=== PATIENT | female | born 1985 | race Caucasian/White ===

== ENCOUNTER 2024-04-01 06:28 | Day surgery (SDC) | payer OTHER, SELFPAY ==
[2024-04-01] VITALS (10 sets, daily range): BP systolic 104–118; BP diastolic 69–74; BMI 28.1
[2024-04-01 12:11] LABS: HCG, Urine Qualitative Screen Negative
[2024-04-01 12:29] LABS: Hemoglobin 13.9 g/dL (12.0-16.0)
== END 2024-04-01 17:59 | disposition home or self-care (01) ==
LOC: SDS 06:28
PROVIDERS: ATTENDING PHYSICIAN Otolaryngology
DX: D10.1 Benign neoplasm of tongue (principal)
CPT/HCPCS: 41112; 88307; 88332; 81025; 85018; 87070; 88331; 88341; 88342

== ENCOUNTER → 2024-10-08 09:17 | Outpatient (REF) | payer OTHER, SELFPAY | LOC: PNTC 09:17 | PROVIDERS: ATTENDING PHYSICIAN Obstetrics & Gynecology | DX: O09.529 Supervision of elderly multigravida, unspecified trimester (principal) | CPT/HCPCS: 76811 ==

== ENCOUNTER → 2024-11-12 10:58 | Outpatient (REF) | payer OTHER, SELFPAY | LOC: PNTC 10:58 | PROVIDERS: ATTENDING PHYSICIAN Obstetrics & Gynecology | DX: O09.529 Supervision of elderly multigravida, unspecified trimester (principal) | CPT/HCPCS: 76816 ==

== ENCOUNTER → 2025-01-07 10:27 | Outpatient (REF) | payer OTHER, SELFPAY | LOC: PNTC 10:27 | PROVIDERS: ATTENDING PHYSICIAN Obstetrics & Gynecology | DX: O09.529 Supervision of elderly multigravida, unspecified trimester (principal) | CPT/HCPCS: 59025; 76816 ==

== ENCOUNTER → 2025-01-14 10:33 | Outpatient (REF) | payer OTHER, SELFPAY | LOC: PNTC 10:33 | PROVIDERS: ATTENDING PHYSICIAN Obstetrics & Gynecology | DX: O09.529 Supervision of elderly multigravida, unspecified trimester (principal) | CPT/HCPCS: 59025; 76815 ==

== ENCOUNTER → 2025-01-21 11:04 | Outpatient (REF) | payer OTHER, SELFPAY | LOC: PNTC 11:04 | PROVIDERS: ATTENDING PHYSICIAN Obstetrics & Gynecology | DX: O09.529 Supervision of elderly multigravida, unspecified trimester (principal) | CPT/HCPCS: 59025; 76815 ==

== ENCOUNTER → 2025-01-27 10:29 | Outpatient (REF) | payer OTHER, SELFPAY | LOC: PNTC 10:29 | PROVIDERS: ATTENDING PHYSICIAN Obstetrics & Gynecology | DX: O09.529 Supervision of elderly multigravida, unspecified trimester (principal) | CPT/HCPCS: 59025; 76815 ==

== ENCOUNTER 2025-01-30 05:27 | Inpatient (IN) | payer OTHER, SELFPAY ==
[2025-01-30 05:34] VITALS: BMI 28.5
[2025-01-30 05:48] VITALS: BP 106/68
[2025-01-30] MEDS: LR 1000 IV (06:17)
[2025-01-30 06:33] LABS: Hematocrit 34.5 % (37.0-47.0); Hemoglobin 12.0 g/dL (12.0-16.0); Mean Corp Hgb Conc. 34.8 g/dL (33.0-37.0); Mean Corpuscular Volume 94.5 fL (81.0-99.0); Platelet Count 157 10^3/uL (130-400); Red Cell Dist. Width 13.7 % (11.5-14.5)
[2025-01-30] MEDS: ANCEF 10 IV (07:13)
[2025-01-30] MEDS: TYLENOL 975 MG PO (07:13)
[2025-01-30] MEDS: BICITRA 30 ML PO (07:13)
[2025-01-30] MEDS: TORADOL 15 MG IV ×2 (13:52→19:40)
[2025-01-30] MEDS: COLACE 100 MG PO (19:39)
[2025-01-30] MEDS: FLUSH (NSS) 3 FLUSH IV (19:41)
[2025-01-30] MEDS: MYLICON 80 MG PO (20:49)
[2025-01-31] MEDS: TORADOL 15 MG IV ×2 (02:05→08:07)
[2025-01-31 05:51] LABS: Hematocrit 33.9 % (37.0-47.0); Hemoglobin 11.8 g/dL (12.0-16.0); Mean Corp Hgb Conc. 34.8 g/dL (33.0-37.0); Mean Corpuscular Volume 95.0 fL (81.0-99.0); Platelet Count 157 10^3/uL (130-400); Red Cell Dist. Width 13.3 % (11.5-14.5)
--- NOTE | 2025-01-31 07:43 | W.PN.ANS.POP ---
Anesthesia Post Operative
- Anesthesia Post Op Note
Vital Signs Stable-See Nursing Note: Yes
Airway Patent: Yes
Adequate Pain Control: Yes
Change in Mental Status: No
Current Postoperative Nausea & Vomiting: No
Anesthesia Complications: No
General Anesthetic Recall: No
Unplanned Admission: No
Post Op Hydration Adequate: Yes
[2025-01-31] MEDS: PRENATAL PLUS 1 TABLET PO (08:09)
[2025-01-31] MEDS: COLACE 100 MG PO ×2 (08:09→19:29)
[2025-01-31] MEDS: MYLICON 80 MG PO (08:09)
[2025-01-31] MEDS: TYLENOL 650 MG PO ×3 (08:09→19:39)
[2025-01-31 13:11] LABS: Syphilis/T. pallidum Ab Reflex Negative (Negative)
[2025-01-31] MEDS: MOTRIN 600 MG PO ×2 (14:48→21:53)
[2025-02-01] MEDS: TYLENOL 650 MG PO ×6 (01:43→23:01)
[2025-02-01] MEDS: MOTRIN 600 MG PO ×3 (05:38→18:13)
[2025-02-01] MEDS: MYLICON 80 MG PO ×2 (05:50→14:41)
[2025-02-01] MEDS: PRENATAL PLUS 1 TABLET PO (07:54)
[2025-02-01] MEDS: COLACE 100 MG PO ×2 (07:54→19:35)
[2025-02-02] MEDS: MOTRIN 600 MG PO ×2 (00:07→07:24)
[2025-02-02] MEDS: TYLENOL 650 MG PO ×2 (03:06→07:24)
[2025-02-02] MEDS: PRENATAL PLUS 1 TABLET PO (07:24)
[2025-02-02] MEDS: MYLICON 80 MG PO (07:24)
[2025-02-02] MEDS: COLACE 100 MG PO (07:24)
--- NOTE | 2025-02-02 13:51 | W.DS.TRANS ---
DC Summary - [employer]
-
Discharge Instructions:
Discharge Diagnosis/Procedures Section
Diet Regular
Activity No strenuous activity
Driving Restrictions No driving for 2 weeks
Bathing Restrictions OK to Shower
Instructions:
Stand-Alone Forms: LDRP Delivery
Changes to Home Medications: No
Discharge Medications:
DC Medications w/original date entered in [employer]
prenat.vits,jeff,xjf-meth-yjenc 1 tab PO DAILY Supplement 01/30/25
acetaminophen 325 mg tablet 650 mg (2 x 325 mg) PO Q4HPRN PRN mild pain #0 tabs 02/02/25
docusate sodium 100 mg capsule 100 mg PO BID #0 caps 02/02/25
ibuprofen 600 mg tablet 600 mg PO Q6HPRN PRN cramps #45 tabs 02/02/25
Home Medication Changes
Pending Results: No
== END 2025-02-02 12:35 | disposition home or self-care (01) | DRG 784 ==
LOC: LDRP 05:27
PROVIDERS: ADMITTING PHYSICIAN Obstetrics & Gynecology
PROC: 10D00Z1 Extraction of Products of Conception, Low, Open Approach (ICD-10-PCS; 2025-01-30)
PROC: 6A550ZT Pheresis of Cord Blood Stem Cells, Single (ICD-10-PCS; 2025-01-30)
PROC: 0UB50ZZ Excision of Right Fallopian Tube, Open Approach (ICD-10-PCS; 2025-01-30)
DX: O34.211 Maternal care for low transverse scar from previous cesarean delivery (principal); O87.2 Hemorrhoids in the puerperium; Z3A.39 39 weeks gestation of pregnancy; Z37.0 Single live birth; N83.8 Other noninflammatory disorders of ovary, fallopian tube and broad ligament; O34.83 Maternal care for other abnormalities of pelvic organs, third trimester; M62.08 Separation of muscle (nontraumatic), other site; O99.824 Streptococcus B carrier state complicating childbirth; N73.6 Female pelvic peritoneal adhesions (postinfective); J30.2 Other seasonal allergic rhinitis; O99.52 Diseases of the respiratory system complicating childbirth; Z86.14 Personal history of Methicillin resistant Staphylococcus aureus infection; Z83.3 Family history of diabetes mellitus; Z80.0 Family history of malignant neoplasm of digestive organs; Z82.62 Family history of osteoporosis; Z80.8 Family history of malignant neoplasm of other organs or systems; Z88.8 Allergy status to other drugs, medicaments and biological substances
CPT/HCPCS: 36415; 85027; 86780; 86850; 86900; 86901